=== PATIENT | male | born 1990 | race Caucasian/White ===

== ENCOUNTER 2018-02-06 03:01 | Emergency (ER) | payer BC ==
[~2018-02-06] VITALS: Ht 185.4 cm; Wt 98.3 kg
[2018-02-06 03:25] VITALS: BP 145/81
[2018-02-06] MEDS ORDERED: MONT10TA6 PO (03:25)
[2018-02-06] MEDS ORDERED: ALBU1.25 NEB (03:25)
[2018-02-06] MEDS ORDERED: ALBUTEROL/IPRATROPIUM 2.5MG/0.5MG, 3 ML NPPB ONE (03:30)
[2018-02-06] MEDS ORDERED: ALBUTEROL SULFATE 2.5 MG/3 ML NPPB ONE (03:30)
[2018-02-06] MEDS ORDERED: ALBUTEROL SULFATE 2.5 MG/3 ML ONE (04:09)
== END 2018-02-06 04:52 | disposition home or self-care (01) ==
LOC: ED 04:49
DX: J45.21 Mild intermittent asthma with (acute) exacerbation (principal); J45.31 Mild persistent asthma with (acute) exacerbation; J45.909 Unspecified asthma, uncomplicated
CPT/HCPCS: 71046; 94640; 99284; J7512; J7613; J7620